=== PATIENT | male | born 2000 | race Two or more races ===

== ENCOUNTER 2018-12-30 11:56 | Day surgery (SDC) | payer OTHER ==
[~2018-12-30] VITALS: Ht 177.8 cm; Wt 116.8 kg
[2018-12-30 13:26] VITALS: Ht 177.8 cm; Wt 116.8 kg
[2018-12-30] MEDS ORDERED: ADDERALL (13:38)
[2018-12-30 13:50] VITALS: BP 122/75; PULSE 100; RESP 16
--- NOTE | 2018-12-30 13:59 | PREAC ---
Date/Time of Note Date/Time of Note DATE: 12/30/18 TIME: 13:58 Anesthesia Eval and Record Evaluation Time Pre-Procedure Interview DATE: 12/30/18 TIME: 13:58 Age 18 Sex male NPO: 8 hrs Preoperative diagnosis lower GI bleed Planned procedure colonoscopy Past Medical History Past Medical History: Includes (aDHD) Surgery & Anesthesia Issues No known issue Meds Anticoagulation: No Beta Eduardo within 24 hr: No Reason Beta Eduardo not given: Pt. not on B-Eduardo Reported Medications [Adderall] No Conflict Check 12/30/18 Meds reviewed: Yes Allergies Allergies Reviewed: Yes Labs/Studies Labs Reviewed: Reviewed by anesthesiologist test: N/A Pre-procedure Exam Airway: Adequate mouth opening, Adequate thyromental dist Mallampati: Mallampati II Teeth: Normal Lung: Normal Heart: Normal ASA Physical Status ASA physical status: 1 Emergency: None Planned Anesthetic General/MAC: Mask Planned Pain Management Parenteral pain med Pre-operative Attestations Prior to commencing anesthesia and surgery, the patient was re-evaluated, there was verification of: *The patient's identity *The results of appropriate recent lab work and preoperative vital signs *The above evaluation not changing prior to induction *Anesthetic plan, risk benefits, alternative and complications discussed with patient/family; questions answered; patient/family understands, accepts and wishes to proceed. JULIETTE ELIZALDE MD December 30, 2018 13:59
[2018-12-30] MEDS ORDERED: ONDANSETRON 4 MG INJ IV PRN (14:00)
[2018-12-30] MEDS ORDERED: LIDOCAINE 2% (SDV) 5 ML INJ ONE (14:07)
[2018-12-30] MEDS ORDERED: PROPOFOL 40 ML ONE (14:07)
[2018-12-30] MEDS ORDERED: EPHEDrine 25 MG/5 ML SYG ONE (14:18)
[2018-12-30] MEDS ORDERED: PROPOFOL 20 ML ONE (14:36)
[2018-12-30 14:45] VITALS: BP 119/58; PULSE 100; RESP 16
--- NOTE | 2018-12-30 14:49 | PAC ---
Date/Time of Note Date/Time of Note DATE: 12/30/18 TIME: 14:48 Post-Anesthesia Notes Post-Anesthesia Note Last documented vital signs Vital Signs Date Temp Pulse Resp B/P (MAP) Pulse Ox O2 O2 Flow FiO2 Time Delivery Rate 12/30/18 98.6 100 16 122/75 100 Room Air 13:50 (91) Activity: WNL Respiratory function: WNL Cardiovascular function: WNL Mental status: Baseline Pain reasonably controlled: Yes Hydration appropriate: Yes Nausea/Vomiting absent: Yes Comments BP: 119/58 HR: 86 RR: 15 T: 98 SaO2: 99% JULIETTE ELIZALDE MD December 30, 2018 14:49
[2018-12-30 15:02] VITALS: BP 122/68; PULSE 74; RESP 18
== END 2018-12-30 16:30 | disposition home or self-care (01) ==
LOC: GIL 11:56
PROVIDERS: ATTEND Internal Medicine Gastroenterology
DX: K92.2 Gastrointestinal hemorrhage, unspecified (principal); K64.8 Other hemorrhoids; D12.4 Benign neoplasm of descending colon; D12.5 Benign neoplasm of sigmoid colon; D17.79 Benign lipomatous neoplasm of other sites; K62.1 Rectal polyp
CPT/HCPCS: 45380; 88305; Z7610